=== PATIENT | male | born 1980 | race Hispanic/Latino ===

== ENCOUNTER 2018-11-02 18:21 | Emergency (ER) | payer SELFPAY ==
[2018-11-02] MEDS ORDERED: KETOROLAC 30 MG/ML INJ ONE (20:06)
--- NOTE | 2018-11-02 20:19 | ER ---
Nurse's Notes [facility] Name: Dane Ivory Jr Age: 38 yrs Sex: Male : 1980 Arrival Date: 11/02/2018 Time: 18:24 Bed 17 Private MD: Diagnosis: Sciatica, left side Presentation: 11/02 18:55 Presenting complaint: Patient states: Low back pain that radiates to L hip and down ph left leg, denies injury. Transition of care: patient was not received from another setting of care. Onset of symptoms was November 02, 2018. Risk Assessment: Do you want to hurt yourself or someone else? Patient reports no desire to harm self or others. Initial Sepsis Screen: Does the patient meet any 2 criteria? No. Patient's initial sepsis screen is negative. Does the patient have a suspected source of infection? No. Patient's initial sepsis screen is negative. Care prior to arrival: None. 18:55 Method Of Arrival: Ambulatory ph 18:55 Acuity: [id number] 4 ph Historical: - Allergies: 18:56 No Known Allergies; ph - Home Meds: 18:56 None [Active]; ph - PMHx: 18:56 None; ph - PSHx: 18:56 toe; ph - Immunization history:: Adult Immunizations unknown. - Social history:: Smoking status: Patient uses tobacco products, smokes one pack cigarettes per day. - Ebola Screening: : No symptoms or risks identified at this time. Screenin:12 Abuse screen: Denies threats or abuse. Denies injuries from another. Nutritional ca1 screening: No deficits noted. Tuberculosis screening: No symptoms or risk factors identified. Fall Risk None identified. Assessment: 19:12 General: Appears in no apparent distress. uncomfortable, Behavior is calm, cooperative, ca1 appropriate for age. Pain: Complains of pain in left low back Pain radiates to left leg and left hip Pain currently is 7 out of 10 on a pain scale. Neuro: Level of Consciousness is awake, alert, obeys commands, Oriented to person, place, time, situation. Cardiovascular: Heart tones S1 S2 present Capillary refill < 3 seconds Patient's skin is warm and dry. Respiratory: Airway is patent Trachea midline Respiratory effort is even, unlabored, Respiratory pattern is regular, symmetrical, Breath sounds are clear bilaterally. GI: Abdomen is flat, non-distended, Bowel sounds present X 4 quads. Abd is soft and non tender X 4 quads. : No signs and/or symptoms were reported regarding the genitourinary system. EENT: No signs and/or symptoms were reported regarding the EENT system. Derm: Skin is intact, is healthy with good turgor, Skin is pink, warm \T\ dry. Musculoskeletal: Circulation, motion, and sensation intact. Capillary refill < 3 seconds, Reports pain in left leg pain after prolong sitting and laying on bed. 20:45 Reassessment: Patient appears in no apparent distress at this time. Patient is alert, aa1 oriented x 3, equal unlabored respirations, skin warm/dry/pink. Pt reports back pain has resolved after toradol. Discussed d/c \T\ f/u instructions with [pt \T\ spouse; denies questions or concerns at this time Patient states feeling better. Vital Signs: 18:56 BP 125 / 89; Pulse 65; Resp 18; Temp 98.1; Pulse Ox 99% on R/A; Weight 97.52 kg; Height ph 5 ft. 7 in. (170.18 cm); Pain 6/10; 20:45 BP 130 / 79; Pulse 69; Resp 16; Pulse Ox 98% on R/A; Pain 0/10; aa1 18:56 Body Mass Index 33.67 (97.52 kg, 170.18 cm) ph ED Course: 18:24 Patient arrived in ED. as 18:56 Triage completed. ph 18:57 Arm band placed on Patient placed in an exam room. ph 19:04 Fani Morales, TALISHA is Primary Nurse. ca1 19:10 Anuj Rodriguez PA is PHCP. cp 19:10 Anuj Valentine MD is Attending Physician. cp 19:12 Patient has correct armband on for positive identification. Bed in low position. Call ca1 light in reach. Side rails up X 1. Pulse ox on. NIBP on. 20:45 No provider procedures requiring assistance completed. Patient did not have IV access aa1 during this emergency room visit. Administered Medications: 20:02 Drug: TORadol 60 mg Route: IM; Site: left deltoid; ca1 20:45 Follow up: Response: No adverse reaction; Pain is decreased aa1 Outcome: 20:18 Discharge ordered by . cp 20:45 Discharged to home ambulatory, with significant other. aa1 20:45 Condition: good 20:45 Discharge instructions given to patient, significant other, Instructed on discharge instructions, follow up and referral plans. medication usage, Demonstrated understanding of instructions, follow-up care, medications, Prescriptions given X 2. 20:49 Patient left the ED. aa1 Signatures: Tosha Sanches RN RN aa1 Samanta Wallis Patricia, RN RN ph Page, Corey, PA PA cp Acob, Cheryl RN RN ca1
--- NOTE | 2018-11-02 20:20 | EDPHYS ---
Physician Documentation [facility] Name: Dane Ivory Jr Age: 38 yrs Sex: Male : 1980 Arrival Date: 11/02/2018 Time: 18:24 Bed 17 Private MD: ED Physician Anuj Valentine HPI: 11/02 19:42 This 38 yrs old Male presents to ER via Ambulatory with complaints of Low Back cp Pain. 19:42 The symptoms are located in the left low back. The pain radiates to the left leg. cp Onset: The symptoms/episode began/occurred 1.5 month(s) ago. 19:42 Associated signs and symptoms: Pertinent negatives: abdominal pain, chest pain, cp constipation, dysuria, fever, incontinence, numbness, urinary retention, weakness. 19:42 The problem was sustained from unknown cause. Modifying factors: the patient symptoms cp are aggravated by movement. Historical: - Allergies: 18:56 No Known Allergies; ph - Home Meds: 18:56 None [Active]; ph - PMHx: 18:56 None; ph - PSHx: 18:56 toe; ph - Immunization history:: Adult Immunizations unknown. - Social history:: Smoking status: Patient uses tobacco products, smokes one pack cigarettes per day. - Ebola Screening: : No symptoms or risks identified at this time. ROS: 19:50 Constitutional: Negative for body aches, chills, fever, poor PO intake. cp 19:50 Eyes: Negative for injury, pain, redness, and discharge. cp Exam: 19:55 Constitutional: The patient appears in no acute distress, alert, awake, non-toxic, well cp developed, well nourished. 19:55 Head/Face: Normocephalic, atraumatic. cp 19:55 Eyes: Periorbital structures: appear normal, Conjunctiva: normal, no exudate, no injection, Sclera: no appreciated abnormality, Lids and lashes: appear normal, bilaterally. 19:55 ENT: External ear(s): are unremarkable, Nose: is normal, Mouth: Lips: moist, Oral mucosa: moist. 19:55 Chest/axilla: Inspection: normal. 19:55 Cardiovascular: Rate: normal. 19:55 Respiratory: the patient does not display signs of respiratory distress, Respirations: normal, no use of accessory muscles, no shallow respirations, no splinting, no tachypnea. 19:55 Abdomen/GI: Inspection: abdomen appears normal, Bowel sounds: active, all quadrants, Palpation: abdomen is soft and non-tender, in all quadrants. 20:00 Back: pain, that is mild, of the left low back, ROM is normal, Straight leg raises: of cp both lower extremities does not illicit pain. 20:00 Musculoskeletal/extremity: Exam is negative for calf tenderness, decreased range of cp motion, edema, injury. 20:00 Skin: cellulitis, is not appreciated, no rash present. 20:00 Neuro: Motor: moves all fours, strength is normal, Sensation: is normal, Gait: is steady, at a normal pace, without difficulty, Deep tendon reflexes are 2+ (normal) in the right patellar, right Achilles, left patellar and left Achilles. Vital Signs: 18:56 BP 125 / 89; Pulse 65; Resp 18; Temp 98.1; Pulse Ox 99% on R/A; Weight 97.52 kg; Height ph 5 ft. 7 in. (170.18 cm); Pain 6/10; 20:45 BP 130 / 79; Pulse 69; Resp 16; Pulse Ox 98% on R/A; Pain 0/10; aa1 18:56 Body Mass Index 33.67 (97.52 kg, 170.18 cm) ph MDM: 19:10 Patient medically screened. cp 20:00 Differential diagnosis: strain, sciatica, Herniated disc UTI. cp 20:17 Data reviewed: vital signs, nurses notes, lab test result(s), and as a result, I will cp discharge patient. 20:17 Counseling: I had a detailed discussion with the patient and/or guardian regarding: the cp historical points, exam findings, and any diagnostic results supporting the discharge/admit diagnosis, the need for outpatient follow up, a family practitioner, to return to the emergency department if symptoms worsen or persist or if there are any questions or concerns that arise at home. 11/02 19:36 Order name: Urine Dipstick--Ancillary (enter results); Complete Time: 19:05 ar5 11/02 19:13 Order name: Urine Dipstick-Ancillary (obtain specimen); Complete Time: 19:53 cp Administered Medications: 20:02 Drug: TORadol 60 mg Route: IM; Site: left deltoid; ca1 20:45 Follow up: Response: No adverse reaction; Pain is decreased aa1 Disposition: 11/02/18 20:18 Discharged to Home. Impression: Sciatica, left side. - Condition is Stable. - Discharge Instructions: Sciatica, Back Exercises. - Prescriptions for Cyclobenzaprine 10 mg Oral Tablet - take 1 tablet by ORAL route every 8 hours As needed no driving while taking medication; 20 tablet. Medrol (Luis Miguel) 4 mg Oral Tablets, Dose Pack - take 1 tablet by ORAL route as directed - follow package instructions; 1 packet. - Medication Reconciliation Form, Thank You Letter, Antibiotic Education, Prescription Opioid Use form. - Follow up: Private Physician; When: 2 - 3 days; Reason: Recheck today's complaints. - Problem is new. - Symptoms have improved. Addendum: 11/06/2018 06:55 Co-signature as Attending Physician, Anuj Valentine MD I agree with the assessment and c topete plan of care. Signatures: Dispatcher [employer] EDMS Tosha Sanches RN RN aa1 Anuj Valentine MD MD cha Hall, Patricia RN RN Anuj Rodriguez PA PA cp Fani Morales RN RN ca1 Corrections: (The following items were deleted from the chart) 11/02 20:49 20:18 11/02/2018 20:18 Discharged to Home. Impression: Sciatica, left side. Condition aa1 is Stable. Forms are Medication Reconciliation Form, Thank You Letter, Antibiotic Education, Prescription Opioid Use. Follow up: Private Physician; When: 2 - 3 days; Reason: Recheck today's complaints. Problem is new. Symptoms have improved. cp
[2018-11-02 21:09] LABS: Urine Blood NEGATIVE (NEG); Urine Glucose NEGATIVE (NEG); Urine Protein NEGATIVE (NEG); Urine Specific Gravity 1.025 (1.005-1.030); Urine pH 5.5 (5.0-7.0)
== END 2018-11-02 20:49 | disposition home or self-care (01) ==
LOC: ER 18:21
DX: M54.42 Lumbago with sciatica, left side (principal); F17.210 Nicotine dependence, cigarettes, uncomplicated
CPT/HCPCS: 81003; 96372; 99283